=== PATIENT | female | born 1955 | race Caucasian/White ===

== ENCOUNTER → 2016-10-01 | Outpatient (CLI) | payer BC ==
[~2016-10-01] MED LIST: Albuterol 0.083% 2.5 MG/3 ML Neb Soln NEB ONE; Albuterol 0.083% 2.5 MG/3 ML Neb Soln ONE
== END ==
LOC: MW.RT 13:22
PROVIDERS: ATTEND Internal Medicine
DX: J44.9 Chronic obstructive pulmonary disease, unspecified (principal)
CPT/HCPCS: 94060; 94729

== ENCOUNTER 2018-09-14 04:32 | Inpatient (IN) | payer BC ==
[2018-09-14] MEDS ORDERED: Sodium Chloride 0.9% 2.5 ML Syringe FLUSH PRN (04:49)
[2018-09-14] MEDS ORDERED: Albuterol/Ipratropium 3.0-0.5 MG/3 ML Neb Soln NEB ONE (04:50)
[2018-09-14] MEDS ORDERED: Ondansetron 4 MG/2 ML SDV IVPUSH ONE (04:52)
--- NOTE | 2018-09-14 04:54 | EDM.PDOC ---
ED HPI GENERAL MEDICAL PROBLEM - General Chief Complaint: Respiratory Problem Stated Complaint: AMB Time Seen by Provider: 09/14/18 04:35 - History of Present Illness INITIAL COMMENTS - FREE TEXT/NARRATIVE: HISTORY AND PHYSICAL: History of present illness: The patient is a 62-year-old female with a known history of COPD who follows with Dr. Tello in the clinic and is still pretty sedating and tobacco use and has a long-standing history of smoking and presents with daughter via EMS with complaints of increasing shortness of breath over the last 24 hours. The daughter said that she wanted to bring her into the ED yesterday morning but instead they call Dr. Tello who prescribed her DuoNeb's and a nebulizer machine as well as a Medrol Dosepak. The patient normally does use his maintenance inhalers as well as having a rescue inhaler and has never had a nebulizer machine at home. This is new to her over the last 24 hours. She is on chronic prednisone 5 mg a day and started the Medrol Dosepak just in the last 24 hours. The daughter says that her O2 sats usually run in the 80s but this evening they were in the 60s which is why she called EMS. EMS gave her a nebulizer treatment as well as Solu-Medrol 125mg prior to coming here. She denies any abdominal pain or chest pain and says she has no cardiac disease. The daughter says that she has had swelling of her feet over the last 3 weeks and the patient says that she was told by her provider is not cardiac related but it has not dissipated. The patient has a chronic cough but she says that the phlegm has been thicker than usual but she has not had fevers runny nose or sore throat. She denies any abdominal pain vomiting or diarrhea. The daughter says that she has had a steady deterioration over the last few months and had participated in pulmonary rehabilitation in the past but is so weak now she doesn't think that she can tolerate this at this time. The patient has been appropriate at home but seems a lot more drowsy and speaking with the daughter, who is a nurse, there is some concern about this. The patient has expressed in the past that she does not want to be intubated in the daughter is not sure if she would want the BiPAP to be placed. Review of systems: As per history of present illness and below otherwise all systems reviewed and negative. Past medical history: As per history of present illness and as reviewed below otherwise noncontributory. Surgical history: As per history of present illness and as reviewed below otherwise noncontributory. Social history: No reported history of drug or alcohol abuse. Family history: As per history of present illness and as reviewed below otherwise noncontributory. Physical exam: General: Well-developed well-nourished thin cachectic female who is nontoxic and speaks without breathlessness. Her O2 sats on my evaluation range from 90-95 % on 4 L. the patient is slightly kyphotic in the thoracic spine HEENT: Atraumatic, normocephalic, pupils reactive, negative for conjunctival pallor or scleral icterus, mucous membranes moist, throat clear, neck supple, nontender, trachea midline. Lungs: Diminished breath sounds in all bates most especially in the right base with scattered wheezing and rhonchi breath sounds equal bilaterally, chest nontender. Heart: S1S2, regular rate and rhythm no overt murmurs Abdomen: Soft, nondistended, nontender. NABS Pelvis: Stable nontender. Genitourinary: Deferred. Rectal: Deferred. Extremities: Atraumatic, negative for cords or calf pain. There is edema of her feet bilaterally that does not extend beyond the ankles and there is no edema pretibially or leg asymmetry. Neurovascular unremarkable. Neuro: Awake, alert, oriented. Cranial nerves II through XII unremarkable. Cerebellum unremarkable. Motor and sensory unremarkable throughout. Exam nonfocal. Diagnostics: EKG x 2, chest x-ray CBC CMP BNP magnesium level troponin ABG Therapeutics: Patient received Solu-Medrol 125 mg and a duo neb per EMS, IV O2 monitor, gentle IV fluids, repeat duo neb Zofran was ordered by nursing for some gagging like sensation the patient was having in the room 0547: This case was discussed with Dr. Cain and he is aware that there are still some pending labs and the chest x-ray. He is agreeable to admission pending the results of the ABG and the discussion with the patient and family about more aggressive treatment plans such as BiPAP or intubation. 0600: Daughter and patient are aware of ABG results and in discussion with the patient she is willing to try the BiPAP, which in the previous situations the daughter said she was not willing to try. We will set this up in the ICU and plan on admission there. If the patient does not tolerate the BiPAP discussion will need to be had with Dr. Ennis, the patient's , as well as the daughter and patient regarding steps going forward. The patient has always told her daughter and our staff that she did not want to be intubated and she is continuing to see that here. In fact she didn't even want to be admitted to the hospital. I will admit the patient to the ICU and respiratory therapy is currently setting of BiPAP therapy so we do not need to move all of this. The daughter says that she would like to hold off calling her father until we try the BiPAP and then go from there. She is trying to respect her mother's wishes as best as possible in this challenging situation. 0608: Case was rediscussed with Dr. Cain who is aware of the ABG and our plan for ICU admission and BiPAP attempts as well as all of my conversations with the daughter and the patient. He is in agreement. Critical care time excluding procedures:31min Impression: COPD exacerbation with hypoxia and hypercarbia, respiratory failure Definitive disposition and diagnosis as appropriate pending reevaluation and review of above. Treatments BRANCH DIRECTOR: Reports: Breathing Treatments, IV/IO, Other (see below) Other Treatments BRANCH DIRECTOR: 125mg solu medol - Related Data Allergies Allergy/AdvReac Type Severity Reaction Status Date / Time No Known Allergies Allergy Verified 09/14/18 04:40 Home Meds: Home Meds ALPRAZolam [Xanax] 0.5 mg PO BID PRN #16 tablet 04/18/18 [Rx] Albuterol [Ventolin HFA] 1 - 2 puff INH ASDIRECTED 04/18/18 [History] Citalopram [Citalopram HBr] 20 mg PO DAILY 04/18/18 [History] Glycopyrrolate/Formoterol Fum [Bevespi Aerosphere Inhaler] 1 - 2 puff INH ASDIRECTED 04/18/18 [History] Albuterol/Ipratropium [DuoNeb 3.0-0.5 MG/3 ML] 3 ml .XX ASDIRECTED 09/14/18 [ History] predniSONE [Prednisone] 5 mg PO DAILY 09/14/18 [History] Past Medical History Respiratory History: Reports: COPD FELT HOOKER History: Reports: Psychiatric History: Reports: Anxiety, Depression Hematologic History: Reports: Idiopathic Thrombocytopenia Other Hematologic History: oinduced - Infectious Disease History Infectious Disease History: Reports: Chicken Pox - Past Surgical History HEENT Surgical History: Reports: Oral Surgery, Tonsillectomy GI Surgical History: Reports: Appendectomy Female Surgical History: Reports: Section, Tubal Ligation Social & Family History - Tobacco Use Smoking Status *Q: Current Every Day Smoker Years of Tobacco use: 46 Packs/Tins Daily: 0.5 - Caffeine Use Caffeine Use: Reports: Coffee, Soda - Recreational Drug Use Recreational Drug Use: No ED ROS GENERAL - Review of Systems Review Of Systems: ROS reveals no pertinent complaints other than HPI. ED EXAM, GENERAL - Physical Exam Exam: See Below (See dictation) Course - Vital Signs Last Recorded V/S: Last Vital Signs Temp 36.4 C 09/14/18 04:33 Pulse 106 H 09/14/18 05:46 Resp 32 H 09/14/18 05:46 BP 131/86 09/14/18 05:46 Pulse Ox 94 L 09/14/18 05:46 - Orders/Labs/Meds Orders: Active Orders 24 hr Category Date Time Status Cardiac Monitoring [RC] . DIRECTED Care 09/14/18 04:49 Active EKG Documentation Completion [RC] STAT Care 09/14/18 04:49 Active EKG Documentation Completion [RC] STAT Care 09/14/18 06:05 Ordered Oxygen Therapy, ED [RC] ASDIRECTED Care 09/14/18 04:49 Active Pulse Oximetry [RC] ASDIRECTED Care 09/14/18 04:49 Active RT Aerosol Therapy [RC] ASDIRECTED Care 09/14/18 04:50 Active RT BiPAP/CPAP [RC] ASDIRECTED Care 09/14/18 06:05 Ordered Chest 1V Frontal [CR] Stat Exams 09/14/18 04:49 Taken Sodium Chloride 0.9% [Normal Saline] 1,000 ml Med 09/14/18 05:00 Active IV ASDIRECTED Sodium Chloride 0.9% [Saline Flush] Med 09/14/18 04:49 Active 10 ml FLUSH ASDIRECTED PRN Sodium Chloride 0.9% [Saline Flush] Med 09/14/18 04:49 Active 2.5 ml FLUSH ASDIRECTED PRN Saline Lock Insert [OM.PC] Stat Oth 09/14/18 04:49 Ordered Medication Orders Sodium Chloride (Normal Saline) 1,000 mls @ 75 mls/hr IV ASDIRECTED FRANCISCO Last Infusion: 09/14/18 06:05 Dose: 250 mls/hr Admin: 09/14/18 04:56 Dose: 75 mls/hr Sodium Chloride (Saline Flush) 10 ml FLUSH ASDIRECTED PRN PRN Reason: Keep Vein Open Last Admin: 09/14/18 05:05 Dose: 10 ml Sodium Chloride (Saline Flush) 2.5 ml FLUSH ASDIRECTED PRN PRN Reason: Keep Vein Open Last Admin: 09/14/18 05:13 Dose: 2.5 ml Labs: Laboratory Tests 09/14/18 09/14/18 09/14/18 Range/Units 05:07 05:07 05:07 WBC 11.30 H (4.0-11.0) K/uL RBC 5.42 (4.30-5.90) M/uL Hgb 16.9 H (12.0-16.0) g/dL Hct 49.6 H (36.0-46.0) % MCV 91.5 (80.0-98.0) fL MCH 31.2 (27.0-32.0) pg MCHC 34.1 (31.0-37.0) g/dL RDW Std Deviation 46.1 (28.0-62.0) fl RDW Coeff of Will 14 (11.0-15.0) % Plt Count 119 L (150-400) K/uL MPV 12.50 H (7.40-12.00) fL Neut % (Auto) 88.9 H (48.0-80.0) % Lymph % (Auto) 5.1 L (16.0-40.0) % Charlotte % (Auto) 5.8 (0.0-15.0) % Eos % (Auto) 0.1 (0.0-7.0) % Baso % (Auto) 0.1 (0.0-1.5) % Neut # (Auto) 10.0 H (1.4-5.7) K/uL Lymph # (Auto) 0.6 (0.6-2.4) K/uL Charlotte # (Auto) 0.7 (0.0-0.8) K/uL Eos # (Auto) 0.0 (0.0-0.7) K/uL Baso # (Auto) 0.0 (0.0-0.1) K/uL Nucleated RBC % 0.0 /100WBC Nucleated RBCs # 0 K/uL ABG pH (7.35-7.45) ABG pCO2 (35-45) mmHG ABG pO2 (75-100) mmHG ABG HCO3 (22-26) mEq/L ABG Total CO2 ABG Base Excess (-2.0-2.0) Sodium 123 L (136-145) mmol/L Potassium 4.6 (3.5-5.1) mmol/L Chloride 85 L (98-107) mmol/L Carbon Dioxide 34.6 H (21.0-32.0) mmol/L BUN 15 (7.0-18.0) mg/dL Creatinine 0.6 (0.6-1.0) mg/dL Est Cr Clr Drug Dosing 63.46 mL/min Estimated GFR (MDRD) > 60.0 ml/min Glucose 131 H (74-106) mg/dL Calcium 9.2 (8.5-10.1) mg/dL Magnesium 1.6 L (1.8-2.4) mg/dL Total Bilirubin 0.8 (0.2-1.0) mg/dL AST 37 (15-37) IU/L ALT 51 (14-63) IU/L Alkaline Phosphatase 49 (46-116) U/L Troponin I < 0.050 (0.000-0.056) ng/mL B-Natriuretic Peptide 223 H (<100) PG/ML Total Protein 7.5 (6.4-8.2) g/dL Albumin 4.0 (3.4-5.0) g/dL Globulin 3.5 (2.6-4.0) g/dL Albumin/Globulin Ratio 1.1 (0.9-1.6) 09/14/18 Range/Units 05:40 WBC (4.0-11.0) K/uL RBC (4.30-5.90) M/uL Hgb (12.0-16.0) g/dL Hct (36.0-46.0) % MCV (80.0-98.0) fL MCH (27.0-32.0) pg MCHC (31.0-37.0) g/dL RDW Std Deviation (28.0-62.0) fl RDW Coeff of Will (11.0-15.0) % Plt Count (150-400) K/uL MPV (7.40-12.00) fL Neut % (Auto) (48.0-80.0) % Lymph % (Auto) (16.0-40.0) % Charlotte % (Auto) (0.0-15.0) % Eos % (Auto) (0.0-7.0) % Baso % (Auto) (0.0-1.5) % Neut # (Auto) (1.4-5.7) K/uL Lymph # (Auto) (0.6-2.4) K/uL Charlotte # (Auto) (0.0-0.8) K/uL Eos # (Auto) (0.0-0.7) K/uL Baso # (Auto) (0.0-0.1) K/uL Nucleated RBC % /100WBC Nucleated RBCs # K/uL ABG pH 7.212 L (7.35-7.45) ABG pCO2 96 H (35-45) mmHG ABG pO2 117 H (75-100) mmHG ABG HCO3 39 H (22-26) mEq/L ABG Total CO2 34.9 ABG Base Excess 6.0 H (-2.0-2.0) Sodium (136-145) mmol/L Potassium (3.5-5.1) mmol/L Chloride (98-107) mmol/L Carbon Dioxide (21.0-32.0) mmol/L BUN (7.0-18.0) mg/dL Creatinine (0.6-1.0) mg/dL Est Cr Clr Drug Dosing mL/min Estimated GFR (MDRD) ml/min Glucose (74-106) mg/dL Calcium (8.5-10.1) mg/dL Magnesium (1.8-2.4) mg/dL Total Bilirubin (0.2-1.0) mg/dL AST (15-37) IU/L ALT (14-63) IU/L Alkaline Phosphatase (46-116) U/L Troponin I (0.000-0.056) ng/mL B-Natriuretic Peptide (<100) PG/ML Total Protein (6.4-8.2) g/dL Albumin (3.4-5.0) g/dL Globulin (2.6-4.0) g/dL Albumin/Globulin Ratio (0.9-1.6) Meds: Medications Generic Name Dose Route Start Last Admin Trade Name Freq PRN Reason Stop Dose Admin Sodium Chloride 1,000 mls @ 75 mls/hr 09/14/18 05:00 09/14/18 05:50 Normal Saline IV 250 mls/hr ASDIRECTED FRANCISCO Infusion Sodium Chloride 10 ml 09/14/18 04:49 09/14/18 05:05 Saline Flush FLUSH 10 ml ASDIRECTED PRN Administration Keep Vein Open Sodium Chloride 2.5 ml 09/14/18 04:49 09/14/18 05:13 Saline Flush FLUSH 2.5 ml ASDIRECTED PRN Administration Keep Vein Open Discontinued Medications Generic Name Dose Route Start Last Admin Trade Name Freq PRN Reason Stop Dose Admin Albuterol/Ipratropium 3 ml 09/14/18 04:50 09/14/18 05:08 Duoneb 3.0-0.5 Mg/3 Ml NEB 09/14/18 04:51 3 ml ONETIME ONE Administration Ondansetron HCl 4 mg 09/14/18 04:52 Zofran IVPUSH 09/14/18 04:53 ONETIME ONE Departure - Departure Time of Disposition: 06:09 Disposition: Admitted As Inpatient 67 Condition: Serious Clinical Impression: CO2 retention, COPD exacerbation Respiratory failure Qualifiers: Chronicity: acute Respiratory failure complication: hypoxia and hypercapnia Qualified Code(s): J96.01 - Acute respiratory failure with hypoxia; J96.02 - Acute respiratory failure with hypercapnia - Discharge Information Referrals: PCP,None [Primary Care Provider] - Forms: ED Department Discharge - My Orders Last 24 Hours: My Active Orders 09/14/18 04:49 Cardiac Monitoring [RC] . DIRECTED EKG Documentation Completion [RC] STAT Oxygen Therapy, ED [RC] ASDIRECTED Pulse Oximetry [RC] ASDIRECTED Chest 1V Frontal [CR] Stat Sodium Chloride 0.9% [Saline Flush] 10 ml FLUSH ASDIRECTED PRN Sodium Chloride 0.9% [Saline Flush] 2.5 ml FLUSH ASDIRECTED PRN Saline Lock Insert [OM.PC] Stat 09/14/18 04:50 RT Aerosol Therapy [RC] ASDIRECTED 09/14/18 05:00 Sodium Chloride 0.9% [Normal Saline] 1,000 ml IV ASDIRECTED 09/14/18 06:05 EKG Documentation Completion [RC] STAT RT BiPAP/CPAP [RC] ASDIRECTED - Assessment/Plan Last 24 Hours: My Active Orders 09/14/18 04:49 Cardiac Monitoring [RC] . DIRECTED EKG Documentation Completion [RC] STAT Oxygen Therapy, ED [RC] ASDIRECTED Pulse Oximetry [RC] ASDIRECTED Chest 1V Frontal [CR] Stat Sodium Chloride 0.9% [Saline Flush] 10 ml FLUSH ASDIRECTED PRN Sodium Chloride 0.9% [Saline Flush] 2.5 ml FLUSH ASDIRECTED PRN Saline Lock Insert [OM.PC] Stat 09/14/18 04:50 RT Aerosol Therapy [RC] ASDIRECTED 09/14/18 05:00 Sodium Chloride 0.9% [Normal Saline] 1,000 ml IV ASDIRECTED 09/14/18 06:05 EKG Documentation Completion [RC] STAT RT BiPAP/CPAP [RC] ASDIRECTED
[2018-09-14] MEDS: Sodium Chloride 0.9% 1,000 ML IV SCH ×2 (04:56→13:40)
[2018-09-14] MEDS: Sodium Chloride 0.9% 10 ML Syringe FLUSH PRN ×2 (05:05→08:56)
[2018-09-14 05:36] LABS: CHLORIDE,CL 85 mmol/L (98-107); SODIUM,NA 123 mmol/L (136-145)
[2018-09-14] MEDS ORDERED: Lidocaine 2% 5 ML SDV ONE (08:01)
--- NOTE | 2018-09-14 08:36 | PCM.SN ---
- Free Text/Narrative Note: Consulted by Dr Cain for arterial line placement for frequent ABG and invasive blood pressure monitoring. The patient is currently not alert or oriented, phone consent was obtained from the Otilio Ennis, he understands the risks and benefits and wishes to proceed at this time. ROS - COPD, respiratory failure, hyponatremia, anxiety, depression. Arterial line Procedure note Rt radial artery was palpated, adequate collateral circulation is noted. Using sterile technique, the right wrist was prepped with betadine and sterile towels. 1% Lidocaine was infiltrated over the anticipated insertion site. 20g arrow catheter was then introduced into the artery, pulsatile blood return was noted, guide wire advanced with ease, catheter advanced over the guide wire into position without difficulty, needle and guidewire were then removed. Catheter was then transduced and yielded good arterial waveform. NIBP and Arterial line have good correlation. Catheter was secured with tegaderm, tape, and armboard. Easy to aspirate and flush. Pt tolerated placement well, no complications are noted.
--- NOTE | 2018-09-14 09:08 | PCM.HP ---
H&P History of Present Illness - General Date of Service: 09/14/18 Admit Problem/Dx: Admission Diagnosis/Problem Admission Diagnosis/Problem Respiratory failure - History of Present Illness Initial Comments - Free Text/Narative: 62 yo female with pmh of end stage COPD who presented to the ED this morning with shortness of breath. At home her baseline is 2-5 liters of O2 satting at 85%. Over the past year she has been declining and espicially over the past month. She walks about six steps before getting short of breath. Today she was unable to get to the bathroom by herself. IN the ED she was noted to be lethargic. She received duonebs and solumedrol by EMS and duonebs again in the ED. ABG showed hypercapnic respiratory failure and patient was placed on Bipap. I spoke with over the phone with daughters present and they reported her wishes to never be intubated. - Related Data Allergies/Adverse Reactions: Allergies Allergy/AdvReac Type Severity Reaction Status Date / Time No Known Allergies Allergy Verified 09/14/18 04:40 Home Medications: Home Meds ALPRAZolam [Xanax] 0.5 mg PO BID PRN #16 tablet 04/18/18 [Rx] Albuterol [Ventolin HFA] 1 - 2 puff INH ASDIRECTED 04/18/18 [History] Citalopram [Citalopram HBr] 20 mg PO DAILY 04/18/18 [History] Glycopyrrolate/Formoterol Fum [Bevespi Aerosphere Inhaler] 1 - 2 puff INH ASDIRECTED 04/18/18 [History] Albuterol/Ipratropium [DuoNeb 3.0-0.5 MG/3 ML] 3 ml .XX ASDIRECTED 09/14/18 [ History] predniSONE [Prednisone] 5 mg PO DAILY 09/14/18 [History] Past Medical History Respiratory History: Reports: 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: Psychiatric History: Reports: Anxiety, Depression Hematologic History: Reports: Idiopathic Thrombocytopenia Other Hematologic History: oinduced - Infectious Disease History Infectious Disease History: Reports: Chicken Pox - Past Surgical History HEENT Surgical History: Reports: Oral Surgery, Tonsillectomy GI Surgical History: Reports: Appendectomy Female Surgical History: Reports: Section, Tubal Ligation Social & Family History - Tobacco Use Smoking Status *Q: Current Every Day Smoker Years of Tobacco use: 46 Packs/Tins Daily: 0.5 - Caffeine Use Caffeine Use: Reports: Coffee, Soda - Recreational Drug Use Recreational Drug Use: No H&P Review of Systems - Review of Systems: Review Of Systems: Unable To Obtain Exam - Exam Exam: See Below - Vital Signs Vital Signs: Last Vital Signs Temp 36.1 C 09/14/18 07:00 Pulse 102 H 09/14/18 06:50 Resp 23 H 09/14/18 07:00 BP 132/82 09/14/18 07:00 Pulse Ox 92 L 09/14/18 07:00 Weight: 40.823 kg - Exam General: Lethargic Lungs: Decreased Breath Sounds Cardiovascular: Regular Rate, Regular Rhythm GI/Abdominal Exam: Soft, Non-Tender Extremities: Non-Tender, No Pedal Edema Skin: Warm, Dry, Intact Neurological: No: Focal Deficit - Patient Data Lab Results Last 24 hrs: Laboratory Results - last 24 hr 09/14/18 09/14/18 09/14/18 Range/Units 05:07 05:07 05:07 WBC 11.30 H (4.0-11.0) K/uL RBC 5.42 (4.30-5.90) M/uL Hgb 16.9 H (12.0-16.0) g/dL Hct 49.6 H (36.0-46.0) % MCV 91.5 (80.0-98.0) fL MCH 31.2 (27.0-32.0) pg MCHC 34.1 (31.0-37.0) g/dL RDW Std Deviation 46.1 (28.0-62.0) fl RDW Coeff of Will 14 (11.0-15.0) % Plt Count 119 L (150-400) K/uL MPV 12.50 H (7.40-12.00) fL Neut % (Auto) 88.9 H (48.0-80.0) % Lymph % (Auto) 5.1 L (16.0-40.0) % Tyrrell % (Auto) 5.8 (0.0-15.0) % Eos % (Auto) 0.1 (0.0-7.0) % Baso % (Auto) 0.1 (0.0-1.5) % Neut # (Auto) 10.0 H (1.4-5.7) K/uL Lymph # (Auto) 0.6 (0.6-2.4) K/uL Tyrrell # (Auto) 0.7 (0.0-0.8) K/uL Eos # (Auto) 0.0 (0.0-0.7) K/uL Baso # (Auto) 0.0 (0.0-0.1) K/uL Nucleated RBC % 0.0 /100WBC Nucleated RBCs # 0 K/uL ABG pH (7.35-7.45) ABG pCO2 (35-45) mmHG ABG pO2 (75-100) mmHG ABG HCO3 (22-26) mEq/L ABG Total CO2 ABG Base Excess (-2.0-2.0) Sodium 123 L (136-145) mmol/L Potassium 4.6 (3.5-5.1) mmol/L Chloride 85 L (98-107) mmol/L Carbon Dioxide 34.6 H (21.0-32.0) mmol/L BUN 15 (7.0-18.0) mg/dL Creatinine 0.6 (0.6-1.0) mg/dL Est Cr Clr Drug Dosing 63.46 mL/min Estimated GFR (MDRD) > 60.0 ml/min Glucose 131 H (74-106) mg/dL Calcium 9.2 (8.5-10.1) mg/dL Magnesium 1.6 L (1.8-2.4) mg/dL Total Bilirubin 0.8 (0.2-1.0) mg/dL AST 37 (15-37) IU/L ALT 51 (14-63) IU/L Alkaline Phosphatase 49 (46-116) U/L Troponin I < 0.050 (0.000-0.056) ng/mL B-Natriuretic Peptide 223 H (<100) PG/ML Total Protein 7.5 (6.4-8.2) g/dL Albumin 4.0 (3.4-5.0) g/dL Globulin 3.5 (2.6-4.0) g/dL Albumin/Globulin Ratio 1.1 (0.9-1.6) 09/14/18 Range/Units 05:40 WBC (4.0-11.0) K/uL RBC (4.30-5.90) M/uL Hgb (12.0-16.0) g/dL Hct (36.0-46.0) % MCV (80.0-98.0) fL MCH (27.0-32.0) pg MCHC (31.0-37.0) g/dL RDW Std Deviation (28.0-62.0) fl RDW Coeff of Will (11.0-15.0) % Plt Count (150-400) K/uL MPV (7.40-12.00) fL Neut % (Auto) (48.0-80.0) % Lymph % (Auto) (16.0-40.0) % Tyrrell % (Auto) (0.0-15.0) % Eos % (Auto) (0.0-7.0) % Baso % (Auto) (0.0-1.5) % Neut # (Auto) (1.4-5.7) K/uL Lymph # (Auto) (0.6-2.4) K/uL Tyrrell # (Auto) (0.0-0.8) K/uL Eos # (Auto) (0.0-0.7) K/uL Baso # (Auto) (0.0-0.1) K/uL Nucleated RBC % /100WBC Nucleated RBCs # K/uL ABG pH 7.212 L (7.35-7.45) ABG pCO2 96 H (35-45) mmHG ABG pO2 117 H (75-100) mmHG ABG HCO3 39 H (22-26) mEq/L ABG Total CO2 34.9 ABG Base Excess 6.0 H (-2.0-2.0) Sodium (136-145) mmol/L Potassium (3.5-5.1) mmol/L Chloride (98-107) mmol/L Carbon Dioxide (21.0-32.0) mmol/L BUN (7.0-18.0) mg/dL Creatinine (0.6-1.0) mg/dL Est Cr Clr Drug Dosing mL/min Estimated GFR (MDRD) ml/min Glucose (74-106) mg/dL Calcium (8.5-10.1) mg/dL Magnesium (1.8-2.4) mg/dL Total Bilirubin (0.2-1.0) mg/dL AST (15-37) IU/L ALT (14-63) IU/L Alkaline Phosphatase (46-116) U/L Troponin I (0.000-0.056) ng/mL B-Natriuretic Peptide (<100) PG/ML Total Protein (6.4-8.2) g/dL Albumin (3.4-5.0) g/dL Globulin (2.6-4.0) g/dL Albumin/Globulin Ratio (0.9-1.6) Result Diagrams: 09/14/18 05:07 09/14/18 12:00 Problem List Initiated/Reviewed/Updated: Yes Orders Last 24hrs: Active Orders 24 hr Category Date Time Status Patient Status [ADT] Stat ADT 09/14/18 06:10 Active Antiembolic Devices [RC] PER UNIT ROUTINE Care 09/14/18 08:56 Ordered Insert Gray Catheter [Insert Urinary Catheter] [OM.PC] Care 09/14/18 09:00 Ordered Q24H Oxygen Therapy [RC] PRN Care 09/14/18 08:55 Ordered Pulse Oximetry [RC] ASDIRECTED Care 09/14/18 04:49 Active RT Aerosol Therapy [RC] ASDIRECTED Care 09/14/18 04:50 Active RT Aerosol Therapy [RC] ASDIRECTED Care 09/14/18 08:54 Ordered RT BiPAP/CPAP [RC] ASDIRECTED Care 09/14/18 06:05 Active Up ad Aster [RC] ASDIRECTED Care 09/14/18 08:55 Ordered Urinary Catheter Assessment [RC] ASDIRECTED Care 09/14/18 08:58 Active VTE/DVT Education [RC] PER UNIT ROUTINE Care 09/14/18 08:55 Ordered Vital Signs [RC] Q4H Care 09/14/18 08:55 Ordered Chest 1V Frontal [CR] Stat Exams 09/14/18 04:49 Taken ABG [BLOOD GAS ARTERIAL] [BG] Routine Lab 09/14/18 08:56 Ordered BASIC METABOLIC PANEL,BMP [CHEM] AM Lab 09/15/18 05:11 Ordered CBC WITH AUTO DIFF [HEME] AM Lab 09/15/18 05:11 Ordered Albuterol/Ipratropium [DuoNeb 3.0-0.5 MG/3 ML] Med 09/14/18 12:00 Ordered 3 ml NEB Q6HRRT Enoxaparin [Lovenox] Med 09/14/18 09:00 Ordered 40 mg SUBCUT Q24H Pantoprazole [ProTONIX IV] Med 09/14/18 09:00 Ordered 40 mg IV Q24H Sodium Chloride 0.9% [Normal Saline] 1,000 ml Med 09/14/18 05:00 Active IV ASDIRECTED Sodium Chloride 0.9% [Saline Flush] Med 09/14/18 04:49 Active 10 ml FLUSH ASDIRECTED PRN Sodium Chloride 0.9% [Saline Flush] Med 09/14/18 04:49 Active 2.5 ml FLUSH ASDIRECTED PRN methylPREDNISolone Sod Succ [Solu-MEDROL] Med 09/14/18 09:00 Ordered 125 mg IVPUSH Q6H Saline Lock Insert [OM.PC] Stat Oth 09/14/18 04:49 Ordered Sequential Compression Device [OM.PC] Per Unit Routine Oth 09/14/18 08:55 Ordered Resuscitation Status Routine Resus Stat 09/14/18 08:55 Ordered Medication Orders Albuterol/Ipratropium (Duoneb 3.0-0.5 Mg/3 Ml) 3 ml NEB Q6HRRT [facility] Enoxaparin Sodium (Lovenox) 40 mg SUBCUT Q24H [facility] Sodium Chloride (Normal Saline) 1,000 mls @ 75 mls/hr IV ASDIRECTED [facility] Last Infusion: 09/14/18 06:11 Dose: 75 mls/hr Infusion: 09/14/18 05:50 Dose: 250 mls/hr Admin: 09/14/18 04:56 Dose: 75 mls/hr Methylprednisolone Sodium Succinate (Solu-Medrol) 125 mg IVPUSH Q6H [place] Pantoprazole Sodium (Protonix Iv) 40 mg IV Q24H [place] Sodium Chloride (Saline Flush) 10 ml FLUSH ASDIRECTED PRN PRN Reason: Keep Vein Open Last Admin: 09/14/18 08:56 Dose: 10 ml Admin: 09/14/18 05:05 Dose: 10 ml Sodium Chloride (Saline Flush) 2.5 ml FLUSH ASDIRECTED PRN PRN Reason: Keep Vein Open Last Admin: 09/14/18 05:13 Dose: 2.5 ml Assessment/Plan Comment:: 62 yo female admitted for hypercapnic respiratory failure from severe COPD. Patient has been placed on BIPAP and plan to get a-line for ease of lab draws. Once place will repeat ABG. We will treat COPD exacerbation with duonebs and solumedrol.
[2018-09-14] MEDS: LORazepam 2 MG/ML SDV IVPUSH PRN ×2 (09:39→20:39)
[2018-09-14] MEDS: Pantoprazole 40 MG Vial IV SCH (09:40)
[2018-09-14] MEDS: methylPREDNISolone Sodium Succinate 125 MG/2 ML SDV IVPUSH SCH ×3 (09:45→20:29)
[2018-09-14] MEDS: Enoxaparin 40 MG/0.4 ML Syringe SUBCUT SCH (10:03)
--- NOTE | 2018-09-14 11:01 | CR ---
INDICATION: Pain. Shortness of breath. TECHNIQUE: AP chest. COMPARISON: 04/18/2018. FINDINGS: Prominent hyperinflation both lungs consistent COPD. Prominent nipple shadows bilaterally more apparent today. Heart size normal. Shadow of the main pulmonary arteries are mildly prominent. Central pulmonary arteries are mildly prominent and stable. Pulmonary vascularity in the upper lungs is mildly increased and slightly more prominent which can be seen in pulmonary venous congestion. No focal dense infiltrate or consolidation in either lung. Remainder negative. Dictated by Yuriy Johnston MD @ Sep 14 2018 10:59AM Signed by Dr. Yuriy Johnston @ Sep 14 2018 10:59AM
[2018-09-14] MEDS: Albuterol/Ipratropium 3.0-0.5 MG/3 ML Neb Soln NEB SCH ×3 (11:20→23:38)
[2018-09-14 12:41] LABS: CHLORIDE,CL 87 mmol/L (98-107); SODIUM,NA 124 mmol/L (136-145)
[2018-09-14] MEDS ORDERED: Magnesium Sulfate/Water 2 GM in Premix Bag 1 BAG IV ONE (20:59)
[2018-09-14] MEDS ORDERED: Magnesium Sulfate/Water 1 GM in Premix Bag 1 BAG IV ONE (21:03)
[2018-09-14] MEDS ORDERED: Ondansetron 4 MG/2 ML SDV IVPUSH PRN (22:09)
[2018-09-14] MEDS ORDERED: guaiFENesin/Dextromethorphan 100-10 MG/5 ML Soln 10 ML Cup PO PRN (23:18)
[2018-09-15] MEDS: Sodium Chloride 0.9% 500 ML IV SCH ×2 (01:30→02:05)
[2018-09-15] MEDS: Sodium Chloride 0.9% 1,000 ML IV SCH (02:32)
[2018-09-15] MEDS: methylPREDNISolone Sodium Succinate 125 MG/2 ML SDV IVPUSH SCH ×2 (03:37→09:30)
[2018-09-15] MEDS: Albuterol/Ipratropium 3.0-0.5 MG/3 ML Neb Soln NEB SCH (06:40)
[2018-09-15] MEDS: LORazepam 2 MG/ML SDV IVPUSH PRN (08:56)
[2018-09-15] MEDS: Pantoprazole 40 MG Vial IV SCH (09:29)
[2018-09-15] MEDS: Enoxaparin 40 MG/0.4 ML Syringe SUBCUT SCH (09:30)
--- NOTE | 2018-09-15 10:03 | PCM.DCSUM1 ---
Discharge Summary - Discharge Data Discharge Date: 09/15/18 Discharge Disposition: DC/Tfer to Hospice - Home 50 Condition: Fair - Patient Summary/Data Consults: Consultations 09/14/18 10:54 Consult to Hospice [CONS] Routine Hospital Course: 62 yo female was admitted for acute hypercapnic respiratory failure from her endstage COPD. She presented with mild respiratory distress and lethargy. She was sating 60% on room air. ABG showed a pH of 7.21, PCO2 of 96, O2 of 117. CXR reported hyperinflation but no infiltrate. She was started on BIPAP and treated with solumedrol and duonebs. Her Bipap was titrated up to 20/5 but only noted modest improvement in her hypercapnia. Patient did have improvement in her mentation. Patient expressed her desire to go home with hospice. Hospice was consulted and arranged home services. She was brought home by her family. - Patient Instructions Diet: Usual Diet as Tolerated Activity: As Tolerated - Discharge Plan Home Medications: Home Meds ALPRAZolam [Xanax] 0.5 mg PO BID PRN #16 tablet 04/18/18 [Rx] Albuterol [Ventolin HFA] 1 - 2 puff INH ASDIRECTED 04/18/18 [History] Citalopram [Citalopram HBr] 20 mg PO DAILY 04/18/18 [History] Glycopyrrolate/Formoterol Fum [Bevespi Aerosphere Inhaler] 1 - 2 puff INH ASDIRECTED 04/18/18 [History] Albuterol/Ipratropium [DuoNeb 3.0-0.5 MG/3 ML] 3 ml .XX ASDIRECTED 09/14/18 [ History] predniSONE [Prednisone] 5 mg PO DAILY 09/14/18 [History] Oxygen Therapy Mode: Nasal Cannula Oxygen Flow Rate (L/min): 4 Forms: ED Department Discharge Referrals: PCP,None [Primary Care Provider] - - Discharge Summary/Plan Comment DC Time >30 min.: No - Patient Data Vitals - Most Recent: Last Vital Signs Temp 37.2 C 09/15/18 08:00 Pulse 102 H 09/14/18 06:50 Resp 12 09/15/18 08:00 BP 96/59 L 09/15/18 08:00 Pulse Ox 85 L 09/15/18 08:00 Weight - Most Recent: 40.823 kg I&O - Last 24 hours: Intake & Output 09/14/18 09/15/18 09/15/18 22:59 06:59 14:59 Intake Total 0 425 Output Total 450 300 Balance -450 125 Lab Results - Last 24 hrs: Laboratory Results - last 24 hr 09/14/18 09/14/18 09/14/18 Range/Units 12:00 12:00 16:30 ABG pH 7.245 L 7.294 L (7.35-7.45) ABG pCO2 85 H 74 H (35-45) mmHG ABG pO2 70 L 77 (75-100) mmHG ABG HCO3 37 H 36 H (22-26) mEq/L ABG Total CO2 33.2 31.7 ABG Base Excess 5.6 H 5.9 H (-2.0-2.0) Sodium 124 L (136-145) mmol/L Potassium 4.3 (3.5-5.1) mmol/L Chloride 87 L (98-107) mmol/L Carbon Dioxide 32.9 H (21.0-32.0) mmol/L BUN 15 (7.0-18.0) mg/dL Creatinine 0.5 L (0.6-1.0) mg/dL Est Cr Clr Drug Dosing 76.15 mL/min Estimated GFR (MDRD) > 60.0 ml/min Glucose 120 H (74-106) mg/dL Calcium 8.6 (8.5-10.1) mg/dL 09/15/18 09/15/18 Range/Units 00:35 02:00 ABG pH 7.182 L* 7.244 L (7.35-7.45) ABG pCO2 99 H 80 H (35-45) mmHG ABG pO2 136 H 69 L (75-100) mmHG ABG HCO3 37 H 35 H (22-26) mEq/L ABG Total CO2 34.4 32.0 ABG Base Excess 4.6 H 4.4 H (-2.0-2.0) Sodium (136-145) mmol/L Potassium (3.5-5.1) mmol/L Chloride (98-107) mmol/L Carbon Dioxide (21.0-32.0) mmol/L BUN (7.0-18.0) mg/dL Creatinine (0.6-1.0) mg/dL Est Cr Clr Drug Dosing mL/min Estimated GFR (MDRD) ml/min Glucose (74-106) mg/dL Calcium (8.5-10.1) mg/dL Med Orders - Current: Current Medications Albuterol/Ipratropium (Duoneb 3.0-0.5 Mg/3 Ml) 3 ml NEB Q6HRRT [facility] Last Admin: 09/15/18 06:40 Dose: Not Given Enoxaparin Sodium (Lovenox) 40 mg SUBCUT Q24H [facility] Last Admin: 09/15/18 09:30 Dose: Not Given Guaifenesin/Dextromethorphan (Robitussin Dm) 20 ml PO Q4H PRN PRN Reason: Cough Last Admin: 09/14/18 23:24 Dose: 20 ml Sodium Chloride (Normal Saline) 1,000 mls @ 75 mls/hr IV ASDIRECTED [facility] Last Admin: 09/15/18 02:32 Dose: 75 mls/hr Sodium Chloride (Normal Saline) 500 mls @ 500 mls/hr IV ASDIRECTED [facility] Last Admin: 09/15/18 02:05 Dose: 999 mls/hr Lorazepam (Ativan) 0.5 mg IVPUSH Q6H PRN PRN Reason: aggitation Last Admin: 09/15/18 08:56 Dose: 0.5 mg Methylprednisolone Sodium Succinate (Solu-Medrol) 125 mg IVPUSH Q6H [facility] Last Admin: 09/15/18 09:30 Dose: Not Given Ondansetron HCl (Zofran) 4 mg IVPUSH Q4H PRN PRN Reason: Nausea/Vomiting Last Admin: 09/14/18 22:20 Dose: 4 mg Pantoprazole Sodium (Protonix Iv) 40 mg IV Q24H [facility] Last Admin: 09/15/18 09:29 Dose: Not Given Sodium Chloride (Saline Flush) 10 ml FLUSH ASDIRECTED PRN PRN Reason: Keep Vein Open Last Admin: 09/14/18 08:56 Dose: 10 ml Sodium Chloride (Saline Flush) 2.5 ml FLUSH ASDIRECTED PRN PRN Reason: Keep Vein Open Last Admin: 09/14/18 05:13 Dose: 2.5 ml Discontinued Medications Albuterol/Ipratropium (Duoneb 3.0-0.5 Mg/3 Ml) 3 ml NEB ONETIME ONE Stop: 09/14/18 04:51 Last Admin: 09/14/18 05:08 Dose: 3 ml Magnesium Sulfate 2 gm/ Premix 50 mls @ 50 mls/hr IV ONETIME ONE Stop: 09/14/18 21:58 Last Admin: 09/14/18 22:49 Dose: Not Given Magnesium Sulfate 1 gm/ Premix 25 mls @ 25 mls/hr IV ONETIME ONE Stop: 09/14/18 21:58 Last Admin: 09/14/18 22:20 Dose: 25 mls/hr Lidocaine (Xylocaine-Mpf 2%) Confirm Administered Dose 5 ml .ROUTE .STK-MED ONE Stop: 09/14/18 08:02 Last Admin: 09/14/18 08:55 Dose: 5 ml Ondansetron HCl (Zofran) 4 mg IVPUSH ONETIME ONE Stop: 09/14/18 04:53 Last Admin: 09/14/18 09:40 Dose: Not Given
== END 2018-09-15 09:08 | disposition hospice, home (50) | DRG 140 ==
LOC: MW.ED 04:32 → MW.ICU 06:10
PROVIDERS: ADMIT Internal Medicine; ATTEND Internal Medicine
PROC: 5A09357 Assistance with Respiratory Ventilation, Less than 24 Consecutive Hours, Continuous Positive Airway Pressure (ICD-10-PCS; principal; 2018-09-14)
PROC: 03HY32Z Insertion of Monitoring Device into Upper Artery, Percutaneous Approach (ICD-10-PCS; 2018-09-14)
DX: J44.1 Chronic obstructive pulmonary disease with (acute) exacerbation (principal); J96.02 Acute respiratory failure with hypercapnia; Z66 Do not resuscitate; J96.01 Acute respiratory failure with hypoxia; E87.2 Acidosis; E87.1 Hypo-osmolality and hyponatremia; F17.210 Nicotine dependence, cigarettes, uncomplicated; F32.9 Major depressive disorder, single episode, unspecified; F41.9 Anxiety disorder, unspecified; M40.204 Unspecified kyphosis, thoracic region; Z79.52 Long term (current) use of systemic steroids; Z79.899 Other long term (current) drug therapy
CPT/HCPCS: 36415; 36600; 51702; 71045; 71045-26; 80048; 80053; 82803; 83735; 83880; 84484; 85025; 93005; 94660; 96360; 96361; 99285-25; A9270-GY; C9113; J2001; J2060; J2405; J2930; J3475; J7040; J7620-GY